=== PATIENT | male | born 1985 ===

== ENCOUNTER 2020-10-18 01:34 | Outpatient (CLI) | payer OTHER, SELFPAY ==
--- NOTE | 2020-10-18 | DI.RAD_ITS ---
EXAM: XR KNEE RT 3V AP,LAT,CALIN CLINICAL HISTORY: ARTHRITIS, PAIN, M13.80. TECHNIQUE: 2D digital imaging was performed. COMPARISON: No exams were available for comparison FINDINGS: BONES: No acute fracture is present. No bony destructive lesion is seen. JOINTS: The knee is normally aligned. No joint effusion is seen. SOFT TISSUE: Normal. IMPRESSION: Unremarkable radiographs of the right knee. DATA REPOSITORY: RADIATION DOSE DELIVERED:
== END 2020-10-18 01:54 ==
PROVIDERS: PCP Nurse Practitioner Adult Health; Visit Provider Orthopaedic Surgery
DX: M25.561 Pain in right knee (principal)
CPT/HCPCS: 73562